=== PATIENT | female | born 1940 | race Caucasian/White ===

== ENCOUNTER → 2018-07-25 10:17 | Outpatient (CLI) | payer MEDICARE, SELFPAY ==
--- NOTE | 2018-07-25 10:20 | MM_ITS ---
MM Dig screening mamm BI w/CAD ORDERING PHYSICIAN : Arthur Naranjo MD PATIENT AGE: 78 years GENDER: Female COMPARISON: Bilateral digital mammogram, October 2016, September 2015, 2013, August 2013, April 2012. March 2011 INDICATION: ITS.REASON: SCREENING previous lumpectomy for breast cancer Family history. Maternal grandmother breast cancer age 68 TECHNIQUE: Standard CC and MLO images were obtained. R2 CAD reviewed. FINDINGS: Previous lumpectomy with scarring upper-outer quadrant left breast RIGHT BREAST:Stable with no new areas concern follow-up in one year on the right. Generalized fatty replacement with minimal residual fibroglandular elements throughout LEFT BREAST: Note architectural distortion at the deep upper outer quadrant left breast up likely related to prior lumpectomy site.Dense linear \benign appearing calcifications been present since 2013 with scant if any progression progression and likely reflecting post radiation changes. Just posterior area suspect lumpectomy and scarring, on today's cc view there is a area of slight increased density... This seems to dissipate on the MLO view but since it is slightly more evident today would suggest patient return for rolled axillary cc views along with MLO and 90 degrees spot views of this region.. Small Focal spot views may be an beneficial in this case. If density of concern persistent Ultrasound may be of benefit as well.. (Although ultrasound will likely demonstrate architectural irregularity in findings related to the previous lumpectomy which possibly could be confusing in either case this area labeled X does become less dense on MLO view but still notable. Otherwise note Areas of stable fibroglandular density in the retroareolar region on cc view is similar to studies back to .. Today's hairspring ii inspector less penetrated technique may slightly accentuated the features at both sites as well ---------IMPRESSION: 1. Left breast: previous lumpectomy scarring & architectural distortion upper-outer quadrant left breast On today's cc views there seems to be Increased density is at this lumpectomy site, mainly on the cc projections. This may be in part technical, but quite notable on today's cc view/axillary cc view to the point it warrants further investigation. Would benefit from additional views here at left breast area labeled X ( including spot rolled cc along with MLO and cc small spot views. ) If the increased density persists compared to prior studies, ultrasound may be helpful 2. Right breast unremarkable. Follow-up screening mammogram one year BI-RADS Category: 0 Need Additional Imaging Evaluation RECOMMENDED FOLLOW-UP: IMM - IMMEDIATE FOLLOW-UP RECOMMENDED (A letter has been sent to the patient regarding results of the study.)
== END ==
PROVIDERS: Family Provider Family Medicine; PCP Family Medicine; Visit Provider Family Medicine
DX: Z12.31 Encounter for screening mammogram for malignant neoplasm of breast (principal)
CPT/HCPCS: 77067

== ENCOUNTER → 2018-08-13 13:25 | Outpatient (CLI) | payer MEDICARE, SELFPAY ==
--- NOTE | 2018-08-13 13:27 | MM_ITS ---
MM Dig mamm DX unilat LT CAD, US breast LT complete INDICATION: Follow-up abnormal screening study, history of breast cancer ORDERING PHYSICIAN: Arthur Naranjo MD PATIENT AGE: 78 years COMPARISON: None 829 and 18, 11/14/2016 TECHNIQUE: Problem solving views of the left breast along with left breast ultrasound FINDINGS: Asymmetric density is once again noted involving the lateral aspect of the left breast with some architectural distortion. This is only well seen on the cc view and has dissipated on the MLO view. This leads one to believe that this is merely scar tissue. The density posterior to the area of asymmetric density is felt to be due to overlying muscle. Left breast ultrasound: Small lymph nodes in the left axilla. No suspicious nodules evident. IMPRESSION: Asymmetric density left axilla is felt to represent scar tissue from prior lumpectomy. No convincing evidence of malignancy BI-RADS Category: 3 Probably Benign Finding Short Term Follow-up RECOMMENDED FOLLOW-UP: 6M - 6 MONTH FOLLOW-UP (A letter has been sent to the patient regarding results of the study.)
== END ==
PROVIDERS: PCP Family Medicine; Visit Provider Family Medicine
DX: R92.8 Other abnormal and inconclusive findings on diagnostic imaging of breast (principal)
CPT/HCPCS: 76641; 77065

== ENCOUNTER → 2019-02-13 12:44 | Outpatient (CLI) | payer MEDICARE, SELFPAY ==
--- NOTE | 2019-02-13 12:46 | MM_ITS ---
MM Dig mamm DX unilat LT CAD, US breast LT complete INDICATION: Follow-up abnormal mammogram, six-month follow-up ORDERING PHYSICIAN: Arthur Naranjo MD PATIENT AGE: 78 years COMPARISON: 08/13/2018, 07/25/2018, 11/14/2016 TECHNIQUE: Standard images performed along with problem-solving views and left breast ultrasound FINDINGS: There is average fibroglandular tissue. There are postsurgical changes in the upper outer aspect of the left breast with parenchymal scarring as previously described. There is some increased density noted along the chest wall deep to the area of scarring similar to the previous exams. There is some tenting of the muscle at this region which may be due to underlying fibrotic change. No other significant anomalies are evident. There are scattered benign-appearing calcifications. IMPRESSION: Left breast ultrasound. No suspicious abnormalities are evident. In the area of scarring there is a 7 x 4 mm hypoechoic region. Is similar when compared to the previous exam. IMPRESSION: Persistent asymmetric density in the upper outer aspect of the left breast probably due to an area of scarring not significant change. Recommend continued 6 month follow-up. BI-RADS Category: 3 Probably Benign Finding Short Term Follow-up RECOMMENDED FOLLOW-UP: 6M - 6 MONTH FOLLOW-UP (A letter has been sent to the patient regarding results of the study.)
== END ==
PROVIDERS: PCP Family Medicine; Visit Provider Family Medicine
DX: R92.8 Other abnormal and inconclusive findings on diagnostic imaging of breast (principal)
CPT/HCPCS: 76641; 77065

== ENCOUNTER → 2019-09-17 13:31 | Outpatient (CLI) | payer MEDICARE, SELFPAY ==
--- NOTE | 2019-09-17 13:34 | XR_ITS ---
PROCEDURE: XR DEXA AXIAL SKELETON CLINICAL HISTORY: OSTEOPENIA COMPARISON: No exams were available for comparison FINDINGS: The L1-L4 density is 1.155 grams/centimeters sq with a T-score of -0.2. Right femoral neck density is 0.804 grams/centimeters sq with T-score -1.7 indicating osteopenia. Scanogram images show lumbar scoliosis convex right. IMPRESSION: Osteopenia with moderate fracture risk. Treatment advised. Suggest follow-up exam August 2021 Dictated by: Yash Gil MD 09/17/2019 16:49 Electronically signed by Yash Gil MD in [place] 09/17/2019 16:49
--- NOTE | 2019-09-17 13:35 | MM_ITS ---
PROCEDURE: MM DIG MAMM BI DX W/CAD Patient Age:79Y CLINICAL INDICATION: ABN MAMM-: Six-month follow-up for the asymmetric density at site of previous malignant lumpectomy at 2 o'clock left breast.. No hormones; no clinical complaints Family history: Maternal grandmother with breast cancer age 78 COMPARISON: [facility] DIGITAL MAMM-SCREEN BILATERAL from 05/07/2012 [facility] DIG MAMM-SCREEN MYLENE from 09/24/2013 [facility] DIG MAMM-SCREEN MYLENE from 10/03/2014 [facility] DIG MAMM-SCREEN MYLENE from 10/15/2015 [facility] DIG MAMM-SCREEN MYLENE from 11/14/2016 [facility] MM Dig screening mamm BI w/CAD from 07/25/2018 DX[facility] MM Dig mamm DX unilat LT CAD from 08/13/2018 DXLT MM Dig mamm DX unilat LT CAD from 02/13/2019 TECHNIQUE: Standard CC and MLO images were obtained. R2 CAD reviewed. additional CC and MLO spot views upper-outer quadrant left breast-site of previous lumpectomy FINDINGS: Minimal residual fibroglandular elements. Low-density breast with moderate generalized fatty replacement Right breast low-density breast with no new areas of concern follow-up in 1 year Left breast: The residual density at the lumpectomy site appears stable on CC view and compresses out on the MLO views and some of the CC spot views. Findings compatible with stable scarring and appears unchanged.With no significant change compared back to studies from 2016 Patient may resume annual follow-up 1 year bilateral IMPRESSION: No new areas of concern. Stable bilateral mammogram: Left breast: Previous lumpectomy scar upper outer quadrant. No significant change. Right breast-stable Bilateral follow-up 1 year recommended, and should be encouraged/emphasized BI-RAD Category: 2 Benign Finding(s) FOLLOW-UP: 1YR 1 Year Follow-up (A letter has been sent to the patient regarding results of the study.) Dictated by: Tej Saleh MD 09/21/2019 09:21 Electronically signed by Tej Saleh MD in [place] 09/21/2019 09:31
== END ==
PROVIDERS: PCP Family Medicine; Visit Provider Family Medicine
DX: M85.89 Other specified disorders of bone density and structure, multiple sites (principal); R92.8 Other abnormal and inconclusive findings on diagnostic imaging of breast
CPT/HCPCS: 77066; 77080

== ENCOUNTER → 2020-09-18 07:44 | Outpatient (CLI) | payer MEDICARE, SELFPAY ==
--- NOTE | 2020-09-18 07:47 | MM_ITS ---
PROCEDURE: MM DIG SCREENING MAMM BI W/CAD Referring Doctor: Arthur Naranjo Patient Age:80Y CLINICAL INDICATION: SCREENING 80-year-old Ms Luna with previous 2001 left lumpectomy for malignancy. No new complaints. No hormones. Family history: Maternal grandmother with breast cancer age 68 COMPARISON: MG [facility] DIG MAMM-SCREEN MYLENE from 11/14/2016 MG [facility] MM Dig screening mamm BI w/CAD from 07/25/2018 MG DXLT MM Dig mamm DX unilat LT CAD from 08/13/2018 MG DXLT MM Dig mamm DX unilat LT CAD from 02/13/2019 TECHNIQUE: Standard CC and MLO images were obtained. R2 CAD reviewed. Bilateral digital breast tomosynthesis included. Additional axillary CC views left breast FINDINGS: No new findings either breast. Stable postsurgical changes left breast left breast. Residual architectural changes and density from previous lumpectomy at the axillary tail left breast, as best the seen on axillary CC views of this region These features appear stable with no discrete change. No significant new findings. Stable residual density and architectural distortion from previous lumpectomy, with dense linear stable calcification Right breast. Stable and unchanged with no significant new findings . CC view provides a most consistent stable appearance of the minimal fibroglandular elements superior retroareolar region. Bilateral follow-up 1 year recommended. IMPRESSION: Stable bilateral mammogram. No significant new findings Post lumpectomy features left breast again noted and appear stable Bilateral follow-up 1 year recommended BI-RAD Category: 2 Benign Finding(s) FOLLOW-UP: 1YR 1 Year Follow-up. (A letter has been sent to the patient regarding results of the study.) Dictated by: Tej Saleh MD 09/21/2020 13:56 Tej Saleh MD in [place] 09/21/2020 13:56
== END ==
PROVIDERS: PCP Family Medicine; Visit Provider Family Medicine
DX: Z12.31 Encounter for screening mammogram for malignant neoplasm of breast (principal)
CPT/HCPCS: 77063; 77067

== ENCOUNTER → 2021-08-13 08:38 | Outpatient (CLI) | payer MEDICARE, SELFPAY | PROVIDERS: PCP Family Medicine; Visit Provider Nurse Practitioner | DX: Z20.822 Contact with and (suspected) exposure to COVID-19 (principal) | CPT/HCPCS: C9803; U0003; U0005 ==

== ENCOUNTER → 2021-09-23 08:14 | Outpatient (CLI) | payer MEDICARE, SELFPAY ==
--- NOTE | 2021-09-23 08:18 | MM_ITS ---
PROCEDURE INFORMATION: Exam: MG Bilateral Screening 3D Mammography Exam date and time: 09/23/2021 8:18 AM Age: 81 years old Clinical indication: Screening mammogram. TECHNIQUE: Imaging protocol: Bilateral screening tomosynthesis and 2D mammography including computer-aided detection (CAD) when performed. COMPARISON: 1. MG MM DIG SCREENING MAMM BI W/CAD 09/18/2020 8:12 AM 2. MG MM DIG MAMM BI DX W/CAD 09/17/2019 2:12 PM 3. MG DXLT MM Dig mamm DX unilat LT CAD 02/13/2019 1:12 PM 4. MG DXLT MM Dig mamm DX unilat LT CAD 08/13/2018 1:38 PM FINDINGS: MAMMOGRAPHY: Breast composition: There are scattered areas of fibroglandular density. Mass: None. Architectural distortion: Stable postoperative architectural distortion on the left. Calcifications: Stable benign-appearing calcifications are present. No new or suspicious cluster of microcalcifications have developed. Asymmetric density: No new or suspicious asymmetric density is present Skin thickening: None. Axillary adenopathy: None. IMPRESSION: No mammographic evidence of malignancy. Recommend annual screening mammography unless otherwise clinically indicated. ASSESSMENT: BI-RADS category 2: Benign
== END ==
PROVIDERS: PCP Family Medicine; Visit Provider Family Medicine
DX: Z12.31 Encounter for screening mammogram for malignant neoplasm of breast (principal)
CPT/HCPCS: 77063; 77067

== ENCOUNTER → 2021-09-27 08:46 | Outpatient (CLI) | payer MEDICARE, SELFPAY ==
--- NOTE | 2021-09-27 08:49 | XR_ITS ---
PROCEDURE: XR DEXA AXIAL SKELETON CLINICAL HISTORY: OSTEOPENIA COMPARISON: CR BONE3 BONE DENSITOMETRY(HIP:LT SPINE from 11/14/2016 FINDINGS: The right hip BMD is 0.688 with a T-score of -1.5. The left hip BMD is 0.786 with a T-score of -1.3. The lumbar spine BMD is 1.032 with a T-score of -0.1. Previously the lowest density was in the right femoral neck with T-score -1.5 IMPRESSION: This patient is considered osteopenic according to the World Health Organization criteria. Bone density is between 10 and 25 percent below young normal. Fracture risk is moderate. Treatment is advised. Based on these results a follow-up exam is recommended in 2 year. Dictated by: Yash Gil MD 09/27/2021 15:48 Yash Gil MD in [place] 09/27/2021 15:48
== END ==
PROVIDERS: PCP Family Medicine; Visit Provider Family Medicine
DX: M85.89 Other specified disorders of bone density and structure, multiple sites (principal)
CPT/HCPCS: 77080

== ENCOUNTER → 2022-01-03 09:19 | Outpatient (CLI) | payer MEDICARE, SELFPAY ==
--- NOTE | 2022-01-03 09:26 | XR_ITS ---
FINAL REPORT CLINICAL HISTORY: DYSPNEA FINDINGS: Two views of the chest were obtained. The heart size and pulmonary vascularity are within normal limits. The mediastinum is normal. There is hyperinflation consistent with COPD. There is no pneumothorax. The bony thorax is intact. There are postoperative changes in the left upper quadrant. IMPRESSION: Hyperinflation consistent with COPD. No active cardiopulmonary process. Reviewed, Interpreted and Dictated by Damien Ball III, MD Transcribed by Su Sterling Authenticated by Damien Ball III, MD on 01/03/2022 10:10:41 AM [facility]
== END ==
PROVIDERS: PCP Family Medicine; Visit Provider Family Medicine
DX: R06.09 Other forms of dyspnea (principal); R00.2 Palpitations
CPT/HCPCS: 71046; 93225; 93226

== ENCOUNTER → 2022-01-19 12:51 | Outpatient (CLI) | payer MEDICARE, SELFPAY ==
[2022-01-19 13:40] VITALS: PULSE 88; PULSE 90
== END ==
PROVIDERS: PCP Family Medicine; Visit Provider Family Medicine
DX: R06.09 Other forms of dyspnea (principal); J44.9 Chronic obstructive pulmonary disease, unspecified
CPT/HCPCS: 94060; 94640; 94727; 94729

== ENCOUNTER 2022-05-25 07:55 | Outpatient (CLI) | payer MEDICARE, SELFPAY ==
[2022-05-25] VITALS (19 sets, daily range): BP systolic 119–153; BP diastolic 56–85; PULSE 70–87; RESP 18; TEMP 36.1–36.4; O2SAT 97–100; BMI 24.7
[2022-05-25 09:11] LABS: Hematocrit 24.3 % (37.0-47.0)
[2022-05-25 09:13] LABS: Hemoglobin 6.7 g/dL (12.2-16.2)
--- NOTE | 2022-05-25 09:14 | PC.NURSE ---
critical hemoglobin result called from [facility] in [place], Hgb of 6.7. lab results, and name verified and repeated. MD aware, 2 units PRBC ordered.
[2022-05-25 15:07] LABS: Hematocrit 27.6 % (37.0-47.0)
[2022-05-25 15:18] LABS: Hemoglobin 8.4 g/dL (12.2-16.2)
== END 2022-05-25 15:00 | disposition home or self-care (01) ==
LOC: INF 07:56
PROVIDERS: PCP Family Medicine; Visit Provider Family Medicine
DX: D64.9 Anemia, unspecified (principal)
CPT/HCPCS: 36430; 85014; 85018; 86850; P9016

== ENCOUNTER → 2022-05-27 14:17 | Outpatient (CLI) | payer MEDICARE, SELFPAY ==
--- NOTE | 2022-05-27 14:19 | CA_ITS ---
APPROVED REPORT EXAM: Comprehensive 2D, Doppler, and color-flow Echocardiogram Oiling Machine Operator: Vania Roberts RVT Ht: 5 ft 4 in Wt: 149lbs BSA: 1.73 BP: 70/48 mmHg Indications: EDEMA,HYPOTENSION,FATIGUE 2D Dimensions LVOT 1.76 cm (M/F) 1.5-2.5 LA Volume 18.40 mL LA Volume Index 10.69 mL/m2 (M/F) 16-34 M-Mode Dimensions RVDd 2.96 cm (0.9-2.6) LA Diam 3.72 cm (1.9-4.0) LVDd 4.14 cm (3.5-5.7) Ao Diam 2.65 cm (2.0-3.7) LVDs 2.54 cm (3.5-5.7) IVSd 1.21 cm (0.6-1.1) PWd 0.80 cm (0.6-1.1) EF (Teich) 69.40% FS 38.60% EDV (Teich) 75.90 mL TAPSE 1.91 (<1.7) ESV (Teich) 23.20 mL LV Diastology E Decel Time 233.00 (160-240 msec) E/A Ratio 0.8 LAT E' 9.40 (<10 cm/sec) E/LAT E' Ratio 8.68 (>14) Aortic Valve AO Peak GR. 6.00 mmHg Mitral Valve MV E Max Dc. 82.00 (40-130 cm/s) MV A Velocity 99.00 (40-130 cm/s) E/A Ratio 0.83 MV Decel. Time 233.00 (160-240 ms) MV PHT 68.00 ms Pulmonary Valve PV Peak Velocity 102.00 (50-150 cm/s) Tricuspid Valve TR P. Velocity 318.00 cm/s RAP Estimate 10.00 mmHg RVSP 50.50 mmHg Left Ventricle Left atrium is mildly enlarged, left ventricle is normal size mild concentric left ventricular hypertrophy, estimated ejection fraction 55% with no regional wall motion abnormality, grade 1 diastolic dysfunction seen without tissue Doppler evidence of raise left atrial pressure. Right Ventricle Right atrium and right ventricle are mildly enlarged with normal contractility. Aortic Valve Aortic valve is minimally thickened and fibrosed there is no aortic stenosis or aortic insufficiency. Mitral Valve Mitral valve grossly normal, there is mild mitral regurgitation. Tricuspid Valve Tricuspid valve grossly normal, there is mild tricuspid regurgitation, tricuspid regurgitation jet velocity is inadequate for calculation of the right ventricular systolic pressure. Pulmonic Valve Pulmonic valve is poorly visualized. Great Vessels Aortic root is normal size. Inferior vena cava normal size with normal inspiratory collapse. Pericardium No significant pericardial effusion noted. Conclusion 1. Mild biatrial enlargement, normal left ventricular size, mild concentric left ventricular hypertrophy, estimated ejection fraction 55% with no regional wall motion abnormality, grade 1 diastolic dysfunction seen without tissue Doppler evidence of raise left atrial pressure. 2. Mildly enlarged right ventricle with normal contractility. 3. Mild mitral and tricuspid regurgitation. 4. No significant pericardial effusion. 5. Inferior vena cava normal size with normal inspiratory collapse. Electronically signed by : Cuate Arguello MD 05/28/2022 13:16:46
== END ==
PROVIDERS: PCP Family Medicine; Visit Provider Family Medicine
DX: I95.9 Hypotension, unspecified (principal); R60.0 Localized edema
CPT/HCPCS: 93306

== ENCOUNTER → 2022-06-06 13:35 | Outpatient (CLI) | payer MEDICARE, SELFPAY ==
[2022-06-06 14:07] LABS: Basophils # 0.1 K/mm3 (0-0.2); Basophils % 0.8 % (0.1-2.0); Eosinophils # 0.2 K/mm3 (0.0-0.4); Eosinophils % 2.5 % (0.1-12.0); Hematocrit 32.4 % (37.0-47.0); Hemoglobin 9.5 g/dL (12.2-16.2); Lymphocytes # 1.2 K/mm3 (0.7-4.5); Lymphocytes % 17.7 % (10-50); Mean Corpuscular HGB Conc 29.4 g/dL (31.8-35.4); Mean Corpuscular Hemoglobin 21.6 pg (27.0-31.2); Mean Corpuscular Volume 73.5 fl (81-99); Mean Platelet Volume 8.2 fl (7.4-10.4); Monocytes # 0.6 K/mm3 (0.1-1.0); Monocytes % 8.8 % (1.7-9.3); Neutrophils # 4.7 K/mm3 (1.8-7.8); Neutrophils % 70.2 % (37.0-80.0); Platelet Count 302 K/mm3 (142-424); Red Blood Count 4.41 M/mm3 (4.20-5.40); Red Cell Distribution Width 23.2 % (11.5-17.5); White Blood Count 6.7 K/mm3 (4.8-10.8)
== END ==
PROVIDERS: PCP Family Medicine; Visit Provider Family Medicine
DX: D72.819 Decreased white blood cell count, unspecified (principal)
CPT/HCPCS: 36415; 85025

== ENCOUNTER → 2022-06-27 10:13 | Outpatient (CLI) | payer MEDICARE, SELFPAY ==
[2022-06-27 10:53] LABS: Basophils % 0.4 % (0.1-2.0); Eosinophils # 0.2 K/mm3 (0.0-0.4); Eosinophils % 3.4 % (0.1-12.0); Hematocrit 28.4 % (37.0-47.0); Hemoglobin 8.5 g/dL (12.2-16.2); Lymphocytes # 1.1 K/mm3 (0.7-4.5); Lymphocytes % 19.2 % (10-50); Mean Corpuscular Hemoglobin 21.1 pg (27.0-31.2); Mean Corpuscular Volume 70.3 fl (81-99); Mean Platelet Volume 7.3 fl (7.4-10.4); Monocytes # 0.6 K/mm3 (0.1-1.0); Monocytes % 10.5 % (1.7-9.3); Neutrophils # 3.8 K/mm3 (1.8-7.8); Neutrophils % 66.4 % (37.0-80.0); Platelet Count 306 K/mm3 (142-424); Red Blood Count 4.04 M/mm3 (4.20-5.40); White Blood Count 5.7 K/mm3 (4.8-10.8)
== END ==
PROVIDERS: PCP Family Medicine; Visit Provider Family Medicine
DX: D64.9 Anemia, unspecified (principal)
CPT/HCPCS: 36415; 85025

== ENCOUNTER → 2022-07-18 14:19 | Outpatient (CLI) | payer MEDICARE, SELFPAY ==
[2022-07-18 14:46] LABS: Basophils # 0.1 K/mm3 (0-0.2); Basophils % 0.8 % (0.1-2.0); Eosinophils # 0.2 K/mm3 (0.0-0.4); Eosinophils % 3.1 % (0.1-12.0); Hematocrit 34.4 % (37.0-47.0); Hemoglobin 9.9 g/dL (12.2-16.2); Lymphocytes # 1.1 K/mm3 (0.7-4.5); Lymphocytes % 20.4 % (10-50); Mean Corpuscular HGB Conc 28.8 g/dL (31.8-35.4); Mean Corpuscular Hemoglobin 23.8 pg (27.0-31.2); Mean Corpuscular Volume 82.8 fl (81-99); Mean Platelet Volume 8.5 fl (7.4-10.4); Monocytes # 0.6 K/mm3 (0.1-1.0); Monocytes % 10.4 % (1.7-9.3); Neutrophils # 3.7 K/mm3 (1.8-7.8); Neutrophils % 65.3 % (37.0-80.0); Platelet Count 292 K/mm3 (142-424); Red Blood Count 4.15 M/mm3 (4.20-5.40); White Blood Count 5.6 K/mm3 (4.8-10.8)
== END ==
PROVIDERS: PCP Family Medicine; Visit Provider Family Medicine
DX: D72.819 Decreased white blood cell count, unspecified (principal)
CPT/HCPCS: 36415; 85025

== ENCOUNTER → 2022-08-05 14:18 | Outpatient (CLI) | payer MEDICARE, SELFPAY ==
[2022-08-05 15:16] LABS: Iron 21 ug/dL (37-170)
[2022-08-05 15:32] LABS: Basophils # 0.1 K/mm3 (0-0.2); Basophils % 0.9 % (0.1-2.0); Eosinophils # 0.1 K/mm3 (0.0-0.4); Eosinophils % 2.5 % (0.1-12.0); Hematocrit 36.4 % (37.0-47.0); Hemoglobin 10.3 g/dL (12.2-16.2); Lymphocytes # 1.2 K/mm3 (0.7-4.5); Lymphocytes % 23.7 % (10-50); Mean Corpuscular HGB Conc 28.2 g/dL (31.8-35.4); Mean Corpuscular Hemoglobin 24.2 pg (27.0-31.2); Mean Corpuscular Volume 85.6 fl (81-99); Mean Platelet Volume 7.3 fl (7.4-10.4); Monocytes # 0.4 K/mm3 (0.1-1.0); Neutrophils # 3.4 K/mm3 (1.8-7.8); Neutrophils % 65.8 % (37.0-80.0); Platelet Count 250 K/mm3 (142-424); Red Blood Count 4.25 M/mm3 (4.20-5.40); Red Cell Distribution Width 22.9 % (11.5-17.5); White Blood Count 5.1 K/mm3 (4.8-10.8)
[2022-08-05 15:45] LABS: Total Iron Binding Capacity 307 ug/dL (265-497)
[2022-08-05 15:52] LABS: Ferritin 14.7 ng/ml (11.1-264)
== END ==
PROVIDERS: Family Medicine; PCP Internal Medicine; Visit Provider Internal Medicine
DX: D50.9 Iron deficiency anemia, unspecified (principal)
CPT/HCPCS: 36415; 82728; 83540; 83550; 85025

== ENCOUNTER → 2022-08-22 13:19 | Outpatient (CLI) | payer MEDICARE, SELFPAY ==
[2022-08-22 15:45] LABS: Alanine Aminotransferase 13 U/L (12-78); Albumin Level 3.3 g/dl (3.5-5.0); Albumin/Globulin Ratio 1.4 (1.1-1.8); Alkaline Phosphatase 91 U/L (38-126); Anion Gap 14.8 mEq/L (5-15); Aspartate Amino Transferase 21 U/L (14-36); Blood Urea Nitrogen 13 mg/dl (7-17); Calcium 8.5 mg/dl (8.4-10.2); Carbon Dioxide 29 mmol/L (22.0-30.0); Chloride 100 mmol/L (98-107); Estimated Glomerular Filt Rate 80 ml/min (>60); GFR (African American) 96 ML/MIN (>60); Globulin 2.4 g/dL (1.3-3.2); Glucose 121 mg/dl (74-100); Potassium 4.8 mmoL/L (3.5-5.1); Sodium 139 mmol/L (136-145); Total Protein,Serum 5.7 g/dl (6.3-8.2)
[2022-08-22 15:46] LABS: Bilirubin,Total < 0.1 mg/dl (0.2-1.3)
== END ==
PROVIDERS: PCP Family Medicine; Visit Provider Internal Medicine Medical Oncology
DX: D50.8 Other iron deficiency anemias (principal)
CPT/HCPCS: 36415; 80053

== ENCOUNTER → 2022-08-23 09:41 | Outpatient (CLI) | payer MEDICARE, SELFPAY ==
--- NOTE | 2022-08-23 09:47 | CT_ITS ---
FINAL REPORT TECHNIQUE: After the administration of IV contrast, axial images through the abdomen and pelvis was performed by computed tomography. Oral contrast was given. This study was performed with techniques to keep radiation doses as low as reasonably achievable (ALARA). Individualized dose reduction techniques using automated exposure control or adjustment of mA and/or kV according to the patient's size were employed. CLINICAL HISTORY: IRON DEF. ANEMIA. poss blood in stool FINDINGS: Abdomen: Lung bases are clear. There is a tiny presumed cyst in the right liver. The gallbladder is present. The spleen, pancreas and adrenal glands are unremarkable. Kidneys show no mass or obstruction. No bowel obstruction or fluid collection is seen. There is fecal impaction. There is significant circumferential wall thickening of the mid ascending colon involving over a 6 cm segment with wall thickening measuring up to 1.3 cm. Findings are suspicious for colon carcinoma. There is minimal pericolic adenopathy measuring up to 8 mm. No ascites is identified. Pelvis: The uterus is normal. The appendix is normal. There is no free fluid. IMPRESSION: Severe circumferential wall thickening involving the mid ascending colon with minimal adjacent adenopathy suspicious for primary tumor. Recommend correlation with colonoscopy. Reviewed, Interpreted and Dictated by Kennedi Coleman MD Transcribed by Allyn Maher Authenticated and [facility]
== END ==
PROVIDERS: PCP Internal Medicine; Visit Provider Internal Medicine Medical Oncology
DX: D50.8 Other iron deficiency anemias (principal); R16.1 Splenomegaly, not elsewhere classified
CPT/HCPCS: 74177; Q9967

== ENCOUNTER 2022-08-24 08:20 | Outpatient (CLI) | payer MEDICARE, SELFPAY ==
[2022-08-24 08:50] VITALS: BP 113/66; PULSE 77; RESP 18; O2SAT 98
[2022-08-24 09:20] VITALS: BP 115/67; PULSE 72; RESP 16
== END 2022-08-24 09:35 | disposition home or self-care (01) ==
LOC: INF 08:21
PROVIDERS: PCP Family Medicine; Visit Provider Internal Medicine Medical Oncology
DX: D50.8 Other iron deficiency anemias (principal)
CPT/HCPCS: 96365; J1756

== ENCOUNTER 2022-08-31 08:17 | Outpatient (CLI) | payer MEDICARE, SELFPAY ==
[2022-08-31 08:31] VITALS: BP 133/70; PULSE 83; RESP 18; TEMP 36.4; O2SAT 99
[2022-08-31 09:25] VITALS: BP 135/71; PULSE 85; RESP 18; O2SAT 99
== END 2022-08-31 09:26 | disposition home or self-care (01) ==
LOC: INF 08:17
PROVIDERS: PCP Family Medicine; Visit Provider Internal Medicine Medical Oncology
DX: D50.8 Other iron deficiency anemias (principal)
CPT/HCPCS: 96365; J1756

== ENCOUNTER 2022-09-07 08:24 | Outpatient (CLI) | payer MEDICARE, SELFPAY ==
[2022-09-07 08:43] VITALS: BP 121/75; PULSE 72; RESP 18; TEMP 36.3; O2SAT 99
[2022-09-07 09:30] VITALS: BP 125/64; PULSE 75; RESP 18; O2SAT 99
== END 2022-09-07 09:30 | disposition home or self-care (01) ==
LOC: INF 08:26
PROVIDERS: PCP Family Medicine; Visit Provider Internal Medicine Medical Oncology
DX: D50.8 Other iron deficiency anemias (principal)
CPT/HCPCS: 96365; J1756

== ENCOUNTER 2022-09-14 08:16 | Outpatient (CLI) | payer MEDICARE, SELFPAY ==
[2022-09-14 08:31] VITALS: BP 128/65; PULSE 78; RESP 18; TEMP 36.4; O2SAT 99
[2022-09-14 09:22] VITALS: BP 114/67; PULSE 68; RESP 18; O2SAT 99
== END 2022-09-14 09:27 | disposition home or self-care (01) ==
LOC: INF 08:17
PROVIDERS: PCP Family Medicine; Visit Provider Internal Medicine Medical Oncology
DX: D50.9 Iron deficiency anemia, unspecified (principal)
CPT/HCPCS: 96365; J1756

== ENCOUNTER → 2022-09-16 12:21 | Outpatient (CLI) | payer MEDICARE, SELFPAY ==
--- NOTE | 2022-09-16 12:50 | CT_ITS ---
FINAL REPORT CLINICAL HISTORY: COLON MASS send on recent ct. Looking for mets. COMPARISON: In the 06/15/2022 FINDINGS: Axial CT images of the chest were obtained with contrast. Coronal reformatted images were also obtained. This study was performed with techniques to keep radiation doses as low as reasonably achievable, (ALARA). Individualized dose reduction techniques using automated exposure control or adjustment of mA and/or KV according to the patient's size were employed. There is no evidence of mediastinal or hilar mass or adenopathy. No axillary mass or adenopathy is identified. There are postoperative changes in the left axilla. On lung window images, no pulmonary mass or dominant pulmonary nodule is identified. No localized pulmonary inflammatory process is identified. Limited images of the upper abdomen reveal no mass or localized inflammatory process. Note is made of mild scarring. There is postoperative change in the left upper quadrant. IMPRESSION: No mass or localized inflammatory process. Reviewed, Interpreted and Dictated by Damien Ball III, MD Transcribed by Allyn Maher Authenticated and . [facility]
[2022-09-18 08:10] LABS: CEA 3.3 ng/mL (0.0-4.7)
== END ==
PROVIDERS: PCP Family Medicine; Visit Provider Student in an Organized Health Care Education/Training Program
DX: D37.4 Neoplasm of uncertain behavior of colon (principal)
CPT/HCPCS: 36415; 71260; 82378; Q9967

== ENCOUNTER 2022-09-21 08:19 | Outpatient (CLI) | payer MEDICARE, SELFPAY ==
[2022-09-21 08:45] VITALS: BP 140/73; PULSE 83; RESP 18; O2SAT 98
[2022-09-21 09:25] VITALS: BP 129/70; PULSE 77; RESP 18
== END 2022-09-21 09:35 | disposition home or self-care (01) ==
LOC: INF 08:21
PROVIDERS: PCP Family Medicine; Visit Provider Internal Medicine Medical Oncology
DX: D50.9 Iron deficiency anemia, unspecified (principal)
CPT/HCPCS: 96365; J1756

== ENCOUNTER → 2022-09-26 15:53 | Outpatient (CLI) | payer MEDICARE, SELFPAY ==
--- NOTE | 2022-09-26 15:56 | MM_ITS ---
PROCEDURE INFORMATION: Exam: MG Bilateral Screening 3D Mammography Exam date and time: 09/26/2022 3:51 PM Age: 82 years old Clinical indication: Screening examination . History of left breast cancer TECHNIQUE: Imaging protocol: Bilateral Screening tomosynthesis and 2D mammography including computer-aided detection (CAD) when performed. COMPARISON: 1. MG MM DIG SCREENING MAMM BI W/CAD 09/23/2021 8:20 AM 2. MG MM DIG SCREENING MAMM BI W/CAD 09/18/2020 8:12 AM FINDINGS: MAMMOGRAPHY: Breast composition: There are scattered areas of fibroglandular density. Mass: None. Architectural distortion: Stable post operative architectural distortion in the left upper outer quadrant due to prior lumpectomy for carcinoma. Calcifications: No suspicious calcifications. Asymmetric density: None. Skin thickening: None. Axillary adenopathy: None. IMPRESSION: No mammographic evidence of malignancy. Annual screening is recommended unless otherwise clinically indicated. ASSESSMENT: BI-RADS Category 1: Negative
== END ==
PROVIDERS: PCP Family Medicine; Visit Provider Family Medicine
DX: Z12.31 Encounter for screening mammogram for malignant neoplasm of breast (principal)
CPT/HCPCS: 77063; 77067

== ENCOUNTER → 2022-10-27 11:44 | Outpatient (CLI) | payer MEDICARE, SELFPAY ==
[2022-10-27 13:01] LABS: Basophils # 0.1 K/mm3 (0-0.2); Eosinophils # 0.3 K/mm3 (0.0-0.4); Eosinophils % 5.9 % (0.1-12.0); Hematocrit 42.7 % (37.0-47.0); Hemoglobin 12.6 g/dL (12.2-16.2); Lymphocytes # 1.3 K/mm3 (0.7-4.5); Lymphocytes % 23.9 % (10-50); Mean Corpuscular HGB Conc 29.5 g/dL (31.8-35.4); Mean Corpuscular Hemoglobin 28.2 pg (27.0-31.2); Mean Corpuscular Volume 95.6 fl (81-99); Mean Platelet Volume 9.3 fl (7.4-10.4); Monocytes # 0.4 K/mm3 (0.1-1.0); Monocytes % 7.9 % (1.7-9.3); Neutrophils # 3.3 K/mm3 (1.8-7.8); Neutrophils % 61.3 % (37.0-80.0); Platelet Count 215 K/mm3 (142-424); Red Blood Count 4.47 M/mm3 (4.20-5.40); Red Cell Distribution Width 16.4 % (11.5-17.5); White Blood Count 5.4 K/mm3 (4.8-10.8)
[2022-10-27 13:27] LABS: Iron 45 ug/dL (37-170)
[2022-10-27 13:36] LABS: Total Iron Binding Capacity 313 ug/dL (265-497)
[2022-10-27 14:03] LABS: Ferritin 40.9 ng/ml (11.1-264)
== END ==
PROVIDERS: PCP Family Medicine; Visit Provider Internal Medicine Medical Oncology
DX: D50.9 Iron deficiency anemia, unspecified (principal)
CPT/HCPCS: 36415; 82728; 83540; 83550; 85025

== ENCOUNTER 2022-11-29 16:14 | Emergency (ER) | payer MEDICARE, SELFPAY ==
[2022-11-29] VITALS (9 sets, daily range): BP systolic 149–170; BP diastolic 76–91; PULSE 65–84; RESP 16–18; TEMP 36.5; O2SAT 95–98; BMI 23.6
--- NOTE | 2022-11-29 16:16 | HMH.EDGENADL ---
Discharge Plan Disposition Patient Disposition: Home, Self-Care Condition: Fair Prescriptions Prescriptions: New dexamethasone 4 mg tablet 4 mg PO BID Qty: 20 0RF No Action levothyroxine 100 MCG tablet 100 mcg PO DAILY polyethylene glycol 3350 17G/DOSE powder 1 dose PO DAILY PRN (Reason: Constipation) cyclosporine 1 EACH dropperette 1 each ophthalmic (eye) BID vitamins A,C,K-kasy-hadger 1 EACH capsule 1 each PO BID calcium citrate-vitamin D3 1 EACH tablet 2 each PO BID melatonin 5 MG capsule 5 mg PO HS jtrtd-2j-svk-epa-fish oil 1 EACH capsule 2 each PO BID biotin 5,000 MCG tablet, sublingual 5,000 mcg sublingual DAILY Activity Restrictions/Add. Instructions Additional Instructions/Restrictions: Take Decadron as prescribed. Call Dr. Naranjo tomorrow for further instructions on specialist referral and treatment Clinical Impressions Clinical Impression: Brain metastases Discharge ED Provider: Dannie Brannon General Adult HPI General Chief complaint: Neuro Symptoms/Deficit Stated complaint: STROKE LIKE SYMPTOMS Time Seen by Provider: 11/29/22 16:14 History of Present Illness HPI narrative: Patient seen immediately upon arrival. Patient is sent from Dr. Naranjo's office for possible stroke. Apparently she developed an expressive aphasia while in his office. Family states that since arriving in the emergency room she has called her [id number] by the wrong name. They have not noticed any other symptoms. She has a slight headache. No visual disturbance. Denies numbness or weakness of the arms or legs. She says that she was seeing Dr. Naranjo in the office today about some left lower quadrant pain that she has had, but it has completely resolved in the past couple of days. She has had recent colon surgery for cancer. This was done at [facility]. 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 She also has a distant history of breast cancer in 2000. Family states patient's blood pressure was 150s in the doctor's office, which is high for her. Related Data Home Medications Medication Instructions Recorded Confirmed biotin 5,000 mcg sublingual tablet 5,000 mcg sublingual DAILY 12/12/19 11/29/22 Supplement calcium citrate 315 mg 2 each PO BID Supplement 12/12/19 11/29/22 calcium-vitamin D3 6.25 mcg (250 unit) tablet cyclosporine 0.05 % eye drops in a 1 each ophthalmic (eye) BID DRY EYE 12/12/19 11/29/22 dropperette levothyroxine 100 mcg tablet 100 mcg PO DAILY THYROID 12/12/19 11/29/22 melatonin 5 mg capsule 5 mg PO HS SLEEP 12/12/19 11/29/22 dpfne8-zos-sbe-other adfit3n-ssah 2 each PO BID Supplement 12/12/19 11/29/22 oil 360 mg-1,200 mg capsule polyethylene glycol 3350 17 1 dose PO DAILY PRN Constipation 12/12/19 11/29/22 gram/dose oral powder vitamins A,C,Y-zopj-xeocvo 14,320 1 each PO BID EYES 12/12/19 11/29/22 unit-226 mg-200 unit capsule Previous Rx's Medication Instructions Recorded dexamethasone 4 mg tablet 4 mg PO BID #20 tabs 11/29/22 Allergies Allergy/AdvReac Type Severity Reaction Status Date / Time Penicillins Allergy Verified 10/27/22 11:11 Sulfa (Sulfonamide Allergy Verified 10/27/22 11:11 Antibiotics) [facility] Disclaimer: The information contained in this section may have been updated after the patient was seen, as this information can be updated by other users. Medical History (Updated 11/29/22 @ 19:30 by Dannie Brannon MD) Anemia Hypothyroidism Surgical History (Updated 10/27/22 @ 11:18 by SAVANA Gruber) H/O eye surgery H/O hernia repair H/O lumpectomy History of partial surgical removal of colon Hx of appendectomy Family History Other Family history non-contributory Social History Smoking Status: Never smoker alcohol
--- NOTE | 2022-11-29 16:17 | CT_ITS ---
FINAL REPORT TECHNIQUE: Noncontrast exam CLINICAL HISTORY: STROKE LIKE SYMPTOMS FINDINGS: Left posterior hemispheric edema with underlying left temporal mass measuring 13 mm. Right temporal mass measuring 11 mm. Bilateral cerebellar hemisphere masses posteriorly measuring 14 mm on the left and up to 15 mm on the right. Left periventricular frontal lobe mass with mild edema. No hemorrhage. No midline shift. IMPRESSION: Findings highly suspicious for metastatic brain disease with associated localized edema. No midline shift or hemorrhage. Reviewed, Interpreted and Dictated by Kennedi Cloeman MD Transcribed by Anjum Yusuf Authenticated and [facility]
--- NOTE | 2022-11-29 16:21 | PC.NURSE ---
1619- pt to CT via stretcher, stroke alert
--- NOTE | 2022-11-29 16:22 | XR_ITS ---
FINAL REPORT CLINICAL HISTORY: stroke sx, stroke alert, aphagia COMPARISON: December 2021 FINDINGS: The heart size is normal. The mediastinum is within normal limits. Hyperinflated and hyperlucent lungs compatible with emphysema. No acute infiltrate.. There is no pleural effusion. There is no pneumothorax. The bony thorax is intact. IMPRESSION: No acute cardiopulmonary process. No change from prior. Reviewed, Interpreted and Dictated by Kennedi Coleman MD Transcribed by Anjum Yusuf Authenticated and [facility]
--- NOTE | 2022-11-29 16:22 | ECG_ITS ---
APPROVED REPORT Exam: Resting ECG HR:66 bpm ECG Measurements Heart Rate 66 AXES TX 181 P 76 QRSd 80 QRS 22 QT 391 T 49 QTc 404 Conclusion SINUS RHYTHM LOW QRS VOLTAGE IN EXTREMITY LEADS [QRS DEFLECTION < 0.5 mV IN LIMB LEADS] BORDERLINE ECG UNCONFIRMED REPORT Electronically signed by : Gilbert Polanco MD 12/01/2022 08:13:46
--- NOTE | 2022-11-29 16:22 | PC.NURSE ---
fsbs 95
--- NOTE | 2022-11-29 16:35 | PC.NURSE ---
pt return from CT
[2022-11-29 16:48] LABS: Anion Gap 11.3 mEq/L (5-15); Blood Urea Nitrogen 15 mg/dl (7-17); Carbon Dioxide 30 mmol/L (22.0-30.0); Chloride 101 mmol/L (98-107); Creatinine Clearance Estimated 43 mL/min (50-200); Estimated Glomerular Filt Rate 95 ml/min (>60); GFR (African American) 115 ML/MIN (>60); Glucose 96 mg/dl (74-100); Potassium 4.3 mmoL/L (3.5-5.1); Sodium 138 mmol/L (136-145)
[2022-11-29 16:51] LABS: Activated Partial Thrombo Time 26.5 seconds (22.8-30.6); INR 0.96 (0.9-1.1); Prothrombin Time 10.4 seconds (10.1-12.5)
[2022-11-29 16:54] LABS: Basophils % 0.8 % (0.1-2.0); Eosinophils # 0.2 K/mm3 (0.0-0.4); Eosinophils % 3.6 % (0.1-12.0); Hematocrit 42.7 % (37.0-47.0); Hemoglobin 13.6 g/dL (12.2-16.2); Lymphocytes # 1.4 K/mm3 (0.7-4.5); Lymphocytes % 26.4 % (10-50); Mean Corpuscular HGB Conc 31.9 g/dL (31.8-35.4); Mean Corpuscular Hemoglobin 28.7 pg (27.0-31.2); Mean Corpuscular Volume 89.9 fl (81-99); Mean Platelet Volume 8.8 fl (7.4-10.4); Monocytes # 0.5 K/mm3 (0.1-1.0); Monocytes % 8.8 % (1.7-9.3); Neutrophils # 3.3 K/mm3 (1.8-7.8); Neutrophils % 60.5 % (37.0-80.0); Platelet Count 172 K/mm3 (142-424); Red Blood Count 4.75 M/mm3 (4.20-5.40); Red Cell Distribution Width 15.5 % (11.5-17.5); White Blood Count 5.5 K/mm3 (4.8-10.8)
--- NOTE | 2022-11-29 17:37 | PC.NURSE ---
ER at discussing CT scan results with pt and family at this time
--- NOTE | 2022-11-29 17:48 | PC.NURSE ---
JOSE YOST speaking with Dr. Lira who is sanitation director for Dr. Naranjo.
--- NOTE | 2022-11-29 17:55 | PC.NURSE ---
JOSE YOST speaking with Dr Naranjo.
--- NOTE | 2022-11-29 17:58 | PC.NURSE ---
calling to have Dr Anne paged to call ER
--- NOTE | 2022-11-29 19:19 | PC.NURSE ---
production honing machine operator paging dr. summers again r/t no return call at this time and also having them page dr. dior.
== END 2022-11-29 16:35 | disposition home or self-care (01) ==
PROVIDERS: Emergency Provider Emergency Medicine; PCP Family Medicine
DX: C79.31 Secondary malignant neoplasm of brain (principal); R47.01 Aphasia; R51.9 Headache, unspecified; D64.9 Anemia, unspecified; E03.9 Hypothyroidism, unspecified
CPT/HCPCS: 70450; 71045; 80048; 85025; 85610; 85730; 93005; 96374; 99285

== ENCOUNTER 2022-12-13 13:51 | Outpatient (CLI) | payer MEDICARE, SELFPAY ==
[2022-12-13 13:59] VITALS: BMI 22.8
--- NOTE | 2022-12-13 14:05 | PC.NURSE ---
1405-collected labs via peripheral stick.
[2022-12-13 14:22] LABS: Basophils % 0.1 % (0.1-2.0); Eosinophils # 0.2 K/mm3 (0.0-0.4); Eosinophils % 1.2 % (0.1-12.0); Hematocrit 41.9 % (37.0-47.0); Hemoglobin 13.7 g/dL (12.2-16.2); Lymphocytes # 0.8 K/mm3 (0.7-4.5); Lymphocytes % 6.2 % (10-50); Mean Corpuscular HGB Conc 32.8 g/dL (31.8-35.4); Mean Corpuscular Hemoglobin 29.6 pg (27.0-31.2); Mean Corpuscular Volume 90.4 fl (81-99); Mean Platelet Volume 8.1 fl (7.4-10.4); Monocytes # 0.6 K/mm3 (0.1-1.0); Monocytes % 4.5 % (1.7-9.3); Neutrophils # 10.9 K/mm3 (1.8-7.8); Neutrophils % 88.1 % (37.0-80.0); Platelet Count 214 K/mm3 (142-424); Red Blood Count 4.64 M/mm3 (4.20-5.40); Red Cell Distribution Width 15.6 % (11.5-17.5); White Blood Count 12.4 K/mm3 (4.8-10.8)
[2022-12-13 14:27] LABS: Blood Urea Nitrogen 26 mg/dl (7-17); Creatinine Clearance Estimated 41 mL/min (50-200); Estimated Glomerular Filt Rate 60 ml/min (>60); GFR (African American) 72 ML/MIN (>60)
[2022-12-13 14:46] LABS: Activated Partial Thrombo Time 22.6 seconds (22.8-30.6); INR 0.98 (0.9-1.1); Prothrombin Time 10.6 seconds (10.1-12.5)
[2022-12-13 15:10] LABS: MANUAL DIFFERENTIAL MANUAL DIFFERENTIAL (MANUAL DIFF)
[2022-12-13 16:50] LABS: Lymphocytes % 11 % (10-50); Monocytes % 3 % (2-9); Neutrophils % 86 % (42-76); Platelet Estimate Normal; RBC Morphology Normal; Total Cells Counted 100
== END 2022-12-13 14:05 | disposition home or self-care (01) ==
LOC: LAB 13:53
PROVIDERS: PCP Family Medicine; Visit Provider Internal Medicine Medical Oncology
DX: Z01.812 Encounter for preprocedural laboratory examination (principal); C18.9 Malignant neoplasm of colon, unspecified; C79.31 Secondary malignant neoplasm of brain; D50.9 Iron deficiency anemia, unspecified; R79.1 Abnormal coagulation profile
CPT/HCPCS: 36415; 82565; 84520; 85007; 85025; 85610; 85730

== ENCOUNTER 2022-12-14 06:55 | Outpatient (CLI) | payer MEDICARE, SELFPAY ==
[2022-12-14] VITALS (9 sets, daily range): BP systolic 102–131; BP diastolic 56–72; PULSE 59–73; RESP 18; TEMP 36.5–36.6; O2SAT 94–98; BMI 22.8; BMI 21.9
--- NOTE | 2022-12-14 07:02 | EXP.ANES.CKL ---
[facility] Disclaimer: The information contained in this section may have been updated after the patient was seen, as this information can be updated by other users. Medical History (Updated 12/14/22 @ 07:31 by Aj Child RN) Anemia History of breast cancer History of colon cancer Hypothyroidism Sleep apnea Surgical History (Updated 12/14/22 @ 07:28 by Aj Child RN) H/O eye surgery H/O hernia repair H/O lumpectomy History of partial surgical removal of colon Hx of appendectomy S/P bunionectomy Family History (Updated 12/14/22 @ 07:31 by Aj Child RN) Other Family history non-contributory Family history of emphysema Family history of melanoma Social History (Updated 12/14/22 @ 07:32 by Aj Child RN) Smoking Status: Never smoker alcohol intake: never substance use type: denies use current occupational status: retired Travel in the last 8 weeks: None household members: none housing: house [facility] Anesthesia Checklist Patient Identification Patient Identification: Arm Band and Verbal (Name & ) Structural Data Admitted From: Home Planned Operative Procedure/s: Liver bx Consent for Planned Operative Procedure(s) Verified: Yes NPO Status Verified Time NPO: 00:00 Chart Verification Results Verified: CBC and BMP Airway Assessment C-Spine Mobility Assessed: Yes TMJ Mobility Assessed: Yes Dentition: Good Dentition Neurological Assessment Hx Seizures: No Numbness or tingling in extremities: No Anesthesia Plan Anesthesia Risk discussed: Yes Anesthesia Plan: Verified ASA Class: III Anesthesia Type: MAC
--- NOTE | 2022-12-14 07:37 | CT_ITS ---
FINAL REPORT CLINICAL HISTORY: . liver biopsy FINDINGS: CT-guided liver mass core biopsy HISTORY: Hypermetabolic right hepatic lobe lesion. ATTENDING PHYSICIAN: Dr. Baxter PHYSICIAN [employer] F[employer]ER: Tej Roque PA-C PROCEDURE: After informed consent was obtained and a timeout was performed, the patient was prepped and draped in usual sterile fashion over the lateral right upper quadrant. Utilizing local anesthesia and sterile technique with a coaxial system, access to lesion was obtained. A total of 5 separate 18-gauge core biopsies were obtained. The attending pathologist voiced that the samples were diagnostic. Post biopsy films demonstrate no evidence of acute complication. Anesthesia department provided sedation. The patient tolerated the procedure well and left the department in good condition. IMPRESSION: Status post CT guided core biopsy of liver mass without immediate complication. Films reviewed , interpreted and dictated by Dr. Sharmin Baxter. Transcribed by Tej Roque PA-C. Reviewed, Interpreted and Dictated by Sharmin Baxter MD Transcribed by INGRID Kathleen Authenticated and [facility]
--- NOTE | 2022-12-14 08:40 | PC.NURSE ---
Dressing C/D/I. Denies pain. Site appears flat with no swelling. Pt remains on right side.
--- NOTE | 2022-12-14 09:10 | PC.NURSE ---
Dressing C/D/I. Denies pain. Site appears flat with no swelling. Pt remains on right side.
--- NOTE | 2022-12-14 10:25 | PC.NURSE ---
Dressing C/D/I. Denies pain. Site appears flat with no swelling. Pt remains on right side.
--- NOTE | 2022-12-14 10:55 | PC.NURSE ---
Dressing C/D/I. Denies pain. Site appears flat with no swelling. Pt remains on right side.
--- NOTE | 2022-12-14 11:45 | PC.NURSE ---
Dressing C/D/I. Denies pain. Site appears flat with no swelling. Pt remains on right side.
--- NOTE | 2022-12-15 14:08 | HMH.ITSTN ---
Post Liver Biopsy call. I called and spoke with Roz Luna, she states she feel fine and she's just taking it easy. Said she wasn't going to lift anything over 10lbs for the next week. I told her to call us here radiology if she had any concerns about her bx of bx site. She states she has a followup appointment with Dr Anne on .
== END 2022-12-14 11:45 | disposition home or self-care (01) ==
LOC: RAD 06:57
PROVIDERS: PCP Family Medicine; Visit Provider Internal Medicine Medical Oncology
DX: C18.9 Malignant neoplasm of colon, unspecified (principal); C79.31 Secondary malignant neoplasm of brain; C79.89 Secondary malignant neoplasm of other specified sites
CPT/HCPCS: 47000; 77012

== ENCOUNTER → 2022-12-20 07:41 | Outpatient (CLI) | payer MEDICARE, SELFPAY ==
--- NOTE | 2022-12-20 07:45 | CT_ITS ---
FINAL REPORT TECHNIQUE: Oral and IV contrast enhanced exam CLINICAL HISTORY: COLON CANCER,BRAIN METS COMPARISON: July 2022 FINDINGS: Abdomen: No acute density is seen within the lung bases. Heterogeneous enhancing liver compatible with metastatic liver disease. Mixed hypervascular and hypodense lesion in the liver dome measures 4.9 x 3.7 cm. Heterogeneous lateral left lobe of the liver is new measuring up to 4.5 cm compatible with infiltrative tumor. 2.4 cm pericaval lesion in the central liver. More dominant lesion in the posterior right liver measures 5 cm. Numerous other liver lesions are not measured. Filling defect of the left portal vein branch could be due to tumor thrombus or bland thrombus. Main portal vein is patent. New left adrenal mass measuring 2.4 cm compatible with metastatic disease. Remaining solid abdominal organs are unremarkable. Postoperative change in the left upper quadrant. New right paracaval lymph node in the retroperitoneum measuring up to 3 cm compatible with metastatic adenopathy. No bowel obstruction is present. There is no free air. No fluid collection is seen. Pelvis: No bowel wall thickening is present. No pelvic mass is seen. No pelvic adenopathy or ascites. IMPRESSION: Interval development of extensive liver metastasis, left adrenal metastasis and metastatic adenopathy. Liver lesions and lymph node would be amenable to imaging guided biopsy if needed. Filling defect in the left portal vein branch could be due to tumor or thrombus. Reviewed, Interpreted and Dictated by Kennedi Coleman MD Transcribed by Anjum Yusuf Authenticated and [facility]
== END ==
PROVIDERS: PCP Family Medicine; Visit Provider Internal Medicine Medical Oncology
DX: C18.9 Malignant neoplasm of colon, unspecified (principal); C79.31 Secondary malignant neoplasm of brain
CPT/HCPCS: 74177; Q9967

== ENCOUNTER 2023-01-05 12:26 | Outpatient (CLI) | payer MEDICARE, SELFPAY ==
[2023-01-05 12:32] VITALS: BMI 22.8
[2023-01-05 12:50] LABS: Basophils % 0.2 % (0.1-2.0); Eosinophils % 0.4 % (0.1-12.0); Hematocrit 39.9 % (37.0-47.0); Hemoglobin 12.8 g/dL (12.2-16.2); Mean Corpuscular Hemoglobin 30.3 pg (27.0-31.2); Mean Corpuscular Volume 94.7 fl (81-99); Mean Platelet Volume 8.4 fl (7.4-10.4); Monocytes # 0.3 K/mm3 (0.1-1.0); Monocytes % 3.5 % (1.7-9.3); Neutrophils # 6.6 K/mm3 (1.8-7.8); Platelet Count 178 K/mm3 (142-424); Red Blood Count 4.22 M/mm3 (4.20-5.40); Red Cell Distribution Width 16.2 % (11.5-17.5); White Blood Count 7.9 K/mm3 (4.8-10.8)
[2023-01-05 12:58] LABS: Alanine Aminotransferase 282 U/L (12-78); Albumin Level 3.3 g/dl (3.5-5.0); Albumin/Globulin Ratio 1.6 (1.1-1.8); Alkaline Phosphatase 296 U/L (38-126); Anion Gap 6.8 mEq/L (5-15); Aspartate Amino Transferase 205 U/L (14-36); Bilirubin,Total 0.4 mg/dl (0.2-1.3); Blood Urea Nitrogen 24 mg/dl (7-17); Calcium 8.1 mg/dl (8.4-10.2); Carbon Dioxide 29 mmol/L (22.0-30.0); Chloride 106 mmol/L (98-107); Creatinine Clearance Estimated 41 mL/min (50-200); Estimated Glomerular Filt Rate 68 ml/min (>60); GFR (African American) 83 ML/MIN (>60); Globulin 2.1 g/dL (1.3-3.2); Glucose 123 mg/dl (74-100); Potassium 4.8 mmoL/L (3.5-5.1); Sodium 137 mmol/L (136-145); Total Protein,Serum 5.4 g/dl (6.3-8.2)
[2023-01-06 09:28] LABS: CEA 12.8 ng/mL (0.0-4.7)
== END 2023-01-05 12:47 | disposition home or self-care (01) ==
LOC: INF 12:27
PROVIDERS: Internal Medicine Medical Oncology; PCP Family Medicine; Visit Provider Family Medicine
DX: C18.8 Malignant neoplasm of overlapping sites of colon (principal)
CPT/HCPCS: 36415; 80053; 82378; 85025